=== PATIENT | female | born 1995 | race Caucasian/White ===

== ENCOUNTER 2017-06-16 11:22 | Inpatient (IN) ==
[2017-06-16] MEDS ORDERED: Penicillin G Potassium 5,000,000 UNIT in D5% in Water (Mini-Bag+) 100 ML IVPB ONE (12:11)
[2017-06-16] MEDS ORDERED: Ringers Solution, Lactated 1,000 ML IVC SCH (12:15)
[2017-06-16 12:35] LABS: Amphetamine Screen,Urine Negative ng/mL (Cutoff=1000); Barbiturate Screen,Urine Negative ng/mL (Cutoff=200); Benzodiazepines Screen,Urine Negative ng/mL (Cutoff=200); Cannabinoid Screen,Urine Positive ng/mL (Cutoff = 50); Cocaine Screen,Urine Negative ng/mL (Cutoff= 300); Opiate Screen,Urine Negative ng/mL (Cutoff=300); Phencyclidine Screen,Urine Negative ng/mL (Cutoff=25)
[2017-06-16 12:48] LABS: Basophils % 0.2 %; Eosinophils # 0.1 K/mcL (0.0-0.6); Eosinophils % 1.1 %; Hematocrit 35.9 % (35.3-44.9); Hemoglobin 11.8 g/dL (11.5-15.4); Immature Granulocytes % 0.6 % (0-4); Lymphocytes # 1.7 K/mcL (0.6-4.6); Lymphocytes % 19.1 %; Mean Corpuscular HGB Conc 32.9 g/dL (31.6-35.5); Mean Corpuscular Hemoglobin 26.3 pg (28.0-33.3); Mean Platelet Volume 10.2 fL (9.4-12.4); Monocytes # 0.5 K/mcL (0.0-1.3); Monocytes % 5.7 %; Neutrophils # 6.6 K/mcL (1.6-8.9); Platelet Count 175 K/mcL (140-400); Red Blood Count 4.49 M/mcL (3.82-4.97); Red Cell Distribution Width 14.9 % (11.5-14.5); Segmented Neutrophils % 73.3 %
--- NOTE | 2017-06-16 15:58 | OB/GYN History & Physical ---
Date of Encounter: 06/16/17 Time of Encounter: 15:55 Assessment and Plan (1) 36 weeks gestation of Current visit: Yes Status: Acute (2) Uterine contractions Current visit: Yes Status: Acute After 2 hours of triage monitoring patient made cervical change Admitted to labor and delivery Penicillin for GBS initiated Nubain and epidural as desired Anticipate Dr. Araya aware of admission and plan of care History of Present Illness Chief complaint: Contractions HPI: Ms. Barr is a 22 year old female at 36+ weeks gestation. Patient sent over from the office for contractions and advanced dilation at 5 cm. Patient reports good movement, denies vaginal bleeding, or leaking of fluid. Patient states uncomplicated course. Patient transferred back to Dr. Araya after receiving initial care in [place]. Labs: O+ rubella immune, varicella non-immune, GBS unknown, although serologies negative Past Med Surg Social Fam HX - Past Medical History Medical history: no medical history Psychiatric history: no psych history - Past Surgical History Surgical History: no surgical history, other - Social History Smoking Status: Never smoker Alcohol use: none Drug use: none - Family History Mother Adopted: No Family Member Ethnicity: Non- Living Status: Still Living Hx Family Cardiac Disorders: No Hx Family Respiratory Disorders: No Hx Family Cancer: No Hx Family GI Disorders: No Hx Family Genitourinary Disorders: No Hx Family Endocrine Disorder: No Hx Family Musculoskeletal Disorders: No Hx Family Neuromuscular Disorders: No Hx Family Neurologic Disorders: No Hx Family HEENT Disorders: No Hx Family Autoimmune Disorders: No Hx Family Reproductive Disorders: No Hx Family Psychosocial Disorders: No Hx Family Medical Disorders: No Obstetrical History - Pregnancies : 2 Para: 1 Term: 1 : 0 Ab's: 1 Livin Medications and Allergies Vidal Capsule 1 tab PO DAILY 01/07/16 [History] Ferrous Sulfate 325 mg PO DAILY #30 tablet 03/11/16 [Rx] 3 Allergy/AdvReac Type Severity Reaction Status Date / Time No Known Allergies Allergy Verified 06/16/17 11:55 Exam - Constitutional Constitutional: well developed, well nourished, no acute distress, average body habitus - Neck Neck exam: full ROM - Lungs Respiratory exam: CTAB - Cardiovascular Cardiovascular exam: RRR - Abdomen Abdomen: Present: bowel sounds normal, gravid, non tender - Extremities Extremities exam: normal capillary refill, normal inspection - Cervix Dilation: 6 (Per RN) Effacement: 90 Results Result Diagrams: 06/16/17 12:30 Abnormal lab results MCV 80.0 fL (83.0-100.0) L 06/16/17 12:30 MCH 26.3 pg (28.0-33.3) L 06/16/17 12:30 RDW 14.9 % (11.5-14.5) H 06/16/17 12:30 U Marijuana (THC) Screen Positive ng/mL (Cutoff = 50) H 06/16/17 12:06 All other labs normal. - VTE Reasons for not Prescribing Prophylaxis: Treatment not Indicated - Low risk for VTE
[2017-06-16] MEDS: Penicillin G Potassium 2,500,000 UNIT in D5% in Water 100 ML IVPB SCH ×2 (16:48→20:40)
[2017-06-16] MEDS ORDERED: Oxytocin 20 units/ LR 1000 mL 20 UNIT/1,000 ML BAG IVC ONE (20:36)
--- NOTE | 2017-06-16 20:39 | OB Labor Progress Note ---
Date of Encounter: 06/16/17 Time of Encounter: 20:36 Labor Progress Note - Subjective Subjective: Pt states contractions have spaced out and are not painful - Cervix Cervix: 8/100/-1 - Heart Tones Heart Tones: 145/moderate/+accels/-decels - [place]: q5-19 - Interventions Interventions: AROM for clear fluid. - Plan Plan: Start pitocin per policy Nubain and Epidural as desired. PCN for GBS Anticipate Plan of care discussed with Dr. Araya
[2017-06-16] MEDS ORDERED: Oxytocin 20 units/ LR 1000 mL 20 UNIT/1,000 ML BAG IVC SCH ×3 (20:45→23:00)
[2017-06-16] MEDS ORDERED: Benzocaine/Menthol 56 GM AEROSOL SPRAY TP PRN (22:52)
[2017-06-16] MEDS ORDERED: Lanolin 7 G OINT...G. TP PRN (22:52)
[2017-06-16] MEDS ORDERED: Acetaminophen 325 MG TABLET PO PRN ×2 (22:52)
--- NOTE | 2017-06-16 22:52 | OB/GYN Procedure Note ---
Delivery - Delivery Date: 06/16/17 Provider: Cathy Aguilera Intrapartum events: none Delivery induction: none Delivery augmentation: rupture of membranes, pitocin Delivery monitor: external FHT, external uterine Anesthesia: none Estimated Blood Loss: 150 - (s) Infant A Delivery Date: 06/16/17 Infant Delivery Time: 22:23 Presentation: vertex Position: OA Route of delivery: Gender: Male Viability: Viable Pounds: 7 Ounces: 10 Weight Gram: 3470 kg at 1 minute: 8 at 5 mins: 9 Shoulder Dystocia: not encountered Specimens collected: cord blood Placenta: spontaneous - Repair Episiotomy: none Laceration Description: Perineal - 1st Degree - Complications Delivery complications: none Delivery comments: Spontaneous onset of labor at 36 weeks progressed to complete and began maternal bearing down efforts to of liveborn male. Vertex delivered OA shoulders and body easily followed no nuchal cord or shoulder dystocia encountered. Vigorous placed on maternal abdomen for drying and stimulation Apgars 8/9. Placenta delivered spontaneously complete, Pitocin started per policy, placenta intact upon inspection, fundus firm. First-degree perineal laceration hemostatic and left unrepaired at patient request. EBL 150. All sponge and needle counts correct. Mother and left bonding and skin to skin on labor and delivery. - Disposition Mom disposition: stable in LDR [place] disposition: stable in LDR
[2017-06-16] MEDS: Ibuprofen 600 MG TABLET PO PRN (23:08)
[2017-06-17] MEDS: Ibuprofen 600 MG TABLET PO PRN ×2 (06:56→20:58)
[2017-06-17] MEDS: Prenatal Vit/FA 1 EACH TABLET PO SCH (07:51)
[2017-06-17] MEDS ORDERED: Prenatal Vit/FA 1 EACH TABLET PO SCH (09:00)
--- NOTE | 2017-06-17 09:00 | OB/GYN Progress Note ---
Date of Encounter: 06/17/17 Time of Encounter: 08:58 - Assessment and Plan (1) Mother currently breast-feeding Current Visit: Yes Status: Acute Pt states she has breastpump at home. (2) Vaginal delivery Current Visit: No Status: Acute Pt meeting PPD#1 milestones. Plan for discharge home tomorrow. Subjective - Subjective Patient reports: appetite normal, voiding normally, pain well controlled, ambulating normally [place]: doing well, nursing well Objective - Latest Vital Signs Latest vital signs: Vital Signs Temp Pulse Resp BP Pulse Ox 06/17/17 07:30 98.7 F 80 12 108/68 97 06/17/17 03:25 98.1 F 87 18 90/53 97 06/17/17 02:00 98.2 F 95 16 95/54 97 06/17/17 01:00 98.4 F 85 16 112/60 97 06/17/17 00:00 97.8 F 74 16 121/67 99 Intake and Output 06/16/17 06/17/17 06/17/17 23:59 07:59 15:59 Intake Total 100 / 100 Balance 100 / 100 Intake: IV Fluids 100 / 100 Pfizerpen 2,500,000 UNIT In 100 / 100 Dextrose 5% 100 ML @ 200 mls/hr IVPB Q4HR [facility] Rx#:[id number] Other: Weight 78.8 kg Patient Weight 06/17/17 23:59 Weight 78.8 kg - Exam Lungs: bilateral: normal Chest: Normal S1, Normal S2 Extremities: Present: normal Abdomen: Present: soft Uterus: Present: firm Uterus Position: 2 Fingers Below Umbilicus - Labs Labs: Laboratory Results - last 24 hr 06/16/17 06/16/17 12:06 12:30 WBC 9.0 RBC 4.49 Hgb 11.8 Hct 35.9 MCV 80.0 L MCH 26.3 L MCHC 32.9 RDW 14.9 H Plt Count 175 MPV 10.2 Immature Gran % 0.6 Seg Neutrophils % 73.3 Lymphocytes % 19.1 Monocytes % 5.7 Eosinophils % 1.1 Basophils % 0.2 Neutrophils # 6.6 Lymphocytes # 1.7 Monocytes # 0.5 Eosinophils # 0.1 Basophils # 0.0 Urine Opiates Screen Negative Ur Barbiturates Screen Negative Ur Phencyclidine Scrn Negative Ur Amphetamines Screen Negative U Benzodiazepines Scrn Negative Urine Cocaine Screen Negative U Marijuana (THC) Screen Positive H
[2017-06-17 09:33] LABS: Basophils % 0.3 %; Eosinophils # 0.1 K/mcL (0.0-0.6); Eosinophils % 1.6 %; Hematocrit 34.2 % (35.3-44.9); Hemoglobin 11.3 g/dL (11.5-15.4); Immature Granulocytes % 0.4 % (0-4); Lymphocytes # 1.6 K/mcL (0.6-4.6); Lymphocytes % 20.7 %; Mean Corpuscular Hemoglobin 27.2 pg (28.0-33.3); Mean Corpuscular Volume 82.2 fL (83.0-100.0); Mean Platelet Volume 10.5 fL (9.4-12.4); Monocytes # 0.7 K/mcL (0.0-1.3); Monocytes % 9.7 %; Neutrophils # 5.1 K/mcL (1.6-8.9); Platelet Count 175 K/mcL (140-400); Red Blood Count 4.16 M/mcL (3.82-4.97); Segmented Neutrophils % 67.3 %
[2017-06-18] MEDS: Ibuprofen 600 MG TABLET PO PRN (05:24)
[2017-06-18 07:51] VITALS: BP 95/54
--- NOTE | 2017-06-18 08:17 | Discharge Summary ---
Date of Encounter: 06/18/17 Time of Encounter: 08:12 - Discharge Diagnosis (1) Vaginal delivery Priority: Primary Status: Acute Comments: Pt continues to meet milestones. Pt would like to go home today. Has no concerns. Will discharge with prn Motrin for pain/cramping. - Discharge Medications Prescriptions: Ibuprofen [Motrin] 600 mg PO Q6HR PRN #20 tablet PRN Reason: Cramping Home Medications: Ibuprofen [Motrin] 600 mg PO Q6HR PRN #20 tablet 06/18/17 [Rx] Vit/FA 1 each PO DAILY tablet 06/18/17 [Rx] Vit/FA 1 each PO DAILY tablet 06/18/17 [Rx] Allergies/Adverse Reactions: 3 Allergy/AdvReac Type Severity Reaction Status Date / Time No Known Allergies Allergy Verified 06/16/17 11:55 Data Procedures and tests throughout hospitalization: Laboratory Tests 06/16/17 06/16/17 06/17/17 12:06 12:30 09:12 WBC 9.0 7.6 RBC 4.49 4.16 Hgb 11.8 11.3 L Hct 35.9 34.2 L MCV 80.0 L 82.2 L MCH 26.3 L 27.2 L MCHC 32.9 33.0 RDW 14.9 H 15.0 H Plt Count 175 175 MPV 10.2 10.5 Immature Gran % 0.6 0.4 Seg Neutrophils % 73.3 67.3 Lymphocytes % 19.1 20.7 Monocytes % 5.7 9.7 Eosinophils % 1.1 1.6 Basophils % 0.2 0.3 Neutrophils # 6.6 5.1 Lymphocytes # 1.7 1.6 Monocytes # 0.5 0.7 Eosinophils # 0.1 0.1 Basophils # 0.0 0.0 Urine Opiates Screen Negative Ur Barbiturates Screen Negative Ur Phencyclidine Scrn Negative Ur Amphetamines Screen Negative U Benzodiazepines Scrn Negative Urine Cocaine Screen Negative U Marijuana (THC) Screen Positive H Labs on day of discharge: Labs from last 24 hours 06/17/17 09:12 WBC 7.6 RBC 4.16 Hgb 11.3 L Hct 34.2 L MCV 82.2 L MCH 27.2 L MCHC 33.0 RDW 15.0 H Plt Count 175 MPV 10.5 Immature Gran % 0.4 Seg Neutrophils % 67.3 Lymphocytes % 20.7 Monocytes % 9.7 Eosinophils % 1.6 Basophils % 0.3 Neutrophils # 5.1 Lymphocytes # 1.6 Monocytes # 0.7 Eosinophils # 0.1 Basophils # 0.0 Date of admission: 06/16/17 11:22 Primary care physician: SALVATORE NONE Consults: 06/16/17 22:52 Consult to Evaluation Engineer [CONS] Routine Comment: Vaginal delivery, consult needed Consult to Evaluation Engineer [CONS] Routine Comment: Vaginal delivery, consult needed Discharging clinician: Janki Lira - Patient Status Disposition: Home, Self-Care Condition: Good Functional capacity at discharge: independent ambulation Overall status at discharge: patient is back to baseline - Discharge Instructions Follow Up With: NONE,PCP [Primary Care Provider] - - Diet and Activity Activity: increase activity as tolerated Diet: advance to your usual diet Hospital Course Reason for admission: active labor Delivery: Episiotomy: none Laceration: 1st degree Other procedures: none complications: none Discharge diagnosis: IUP at term delivered baby: male Hospital course: - Delivery Date: 06/16/17 Provider: Cathy Aguilera Intrapartum events: none Delivery induction: none Delivery augmentation: rupture of membranes, pitocin Delivery monitor: external FHT, external uterine Anesthesia: none Estimated Blood Loss: 150 - (s) Infant A Delivery Date: 06/16/17 Delivery Time: 22:23 Presentation: vertex Position: OA Route of delivery: Gender: Male Viability: Viable Pounds: 7 Ounces: 10 Weight Gram: 3470 kg at 1 minute: 8 at 5 mins: 9 Shoulder Dystocia: not encountered Specimens collected: cord blood Placenta: spontaneous - Repair Episiotomy: none Laceration Description: Perineal - 1st Degree - Complications Delivery complications: none Delivery comments: Spontaneous onset of labor at 36 weeks progressed to complete and began maternal bearing down efforts to of liveborn male. Vertex delivered OA shoulders and body easily followed no nuchal cord or shoulder dystocia encountered. Vigorous placed on maternal abdomen for drying and stimulation Apgars 8/9. Placenta delivered spontaneously complete, Pitocin started per policy, placenta intact upon inspection, fundus firm. First-degree perineal laceration hemostatic and left unrepaired at patient request. EBL 150. All sponge and needle counts correct. Mother and left bonding and skin to skin on labor and delivery. Time Attestation: Total time spent providing and/or coordinating discharge services: Time Spent: Less than 30 minutes Exam - Constitutional Vitals: Temp Pulse Resp BP Pulse Ox 98.4 F 65 16 95/54 98 06/18/17 07:30 06/18/17 07:30 06/18/17 07:30 06/18/17 07:30 06/17/17 23:24 General appearance IM: A&O X 3 - Respiratory Respiratory exam: Present: CTAB - Cardiovascular Cardiovascular exam IM: Present: +S1, +S2. Absent: +S3, +S4 - GI/Abdominal GI/Abdominal exam IM: no peritoneal signs - Uterus Position: 1 Finger Below Umbilicus - Neurological Exam Neurological exam: oriented X3 - Attending Attestation I examined this patient and my medical decision-making was reviewed with the Resident Physician. I agree with the documented findings, disposition and treatment plan as described. Ezio Lira CNM
[2017-06-18] MEDS: Prenatal Vit/FA 1 EACH TABLET PO SCH (10:12)
== END 2017-06-18 14:23 | disposition home or self-care (01) | DRG 560 ==
LOC: 1NENULAB → OBSVTOIN 11:22 → 1NENUOBS 06-17 00:04
PROVIDERS: ADMIT Obstetrics & Gynecology; ATTEND Obstetrics & Gynecology

== ENCOUNTER → 2019-05-11 16:43 | Observation (INO) ==
[2019-05-11 14:49] LABS: Bilirubin,Urine Negative (Negative); Blood,Urine Small (Negative); Clarity,Urine Cloudy (Clear); Color,Urine Yellow (Yellow); Glucose,Urine (UA) Normal (Normal); Ketones,Urine Negative (Negative); Leukocyte Esterase,Urine Small (Negative); Nitrite,Urine Negative (Negative); Protein,Urine Negative (Neg-Trace); Specific Gravity,Urine 1.016 (1.010-1.025); Urobilinogen,Urine Normal (Normal)
[2019-05-11 14:51] LABS: Bacteria,Urine Few per hpf (None-Few); Hyaline Casts,Urine None Seen per lpf (None-Few); RBC,Urine 0-3 per hpf (0-3); Squamous Epithelial Cell,Urine Many per lpf (None-Few)
[2019-05-11 14:57] LABS: Amphetamine Screen,Urine Negative ng/mL (Cutoff=1000); Barbiturate Screen,Urine Negative ng/mL (Cutoff=200); Benzodiazepines Screen,Urine Negative ng/mL (Cutoff=200); Cannabinoid Screen,Urine Positive ng/mL (Cutoff = 50); Cocaine Screen,Urine Negative ng/mL (Cutoff= 300); Opiate Screen,Urine Negative ng/mL (Cutoff=300); Phencyclidine Screen,Urine Negative ng/mL (Cutoff=25)
[~2019-05-11 16:43] MED LIST: Betamethasone Acet/SodPhos 30 MG/5 ML VIAL IM SCH; Ringers Solution, Lactated 1,000 ML IVC SCH
== END | disposition home or self-care (01) ==
LOC: 1NENULAB
PROVIDERS: ADMIT Registered Nurse; ATTEND Registered Nurse

== ENCOUNTER 2019-06-17 09:41 | Inpatient (IN) ==
[2019-06-17] MEDS ORDERED: Ondansetron 4 MG/2 ML VIAL IVP PRN (10:18)
[2019-06-17] MEDS ORDERED: *HR* Nalbuphine 10 MG/ML AMPUL IVP PRN (10:18)
[2019-06-17] MEDS ORDERED: Naloxone 0.4 MG/ML INJ IVP PRN (10:18)
[2019-06-17] MEDS ORDERED: Famotidine 20 MG/2 ML VIAL IVP PRN (10:18)
[2019-06-17] MEDS ORDERED: Lidocaine 1% 20 ML MDV ID PRN (10:18)
[2019-06-17] MEDS ORDERED: Metoclopramide 10 MG/2 ML VIAL IVP PRN (10:18)
[2019-06-17] MEDS ORDERED: Ringers Solution, Lactated 1,000 ML IVC SCH (10:30)
--- NOTE | 2019-06-17 10:33 | OB/GYN History & Physical ---
Date of Encounter: 06/17/19 Time of Encounter: 10:31 Assessment and Plan (1) 39 weeks gestation of Current visit: Yes Status: Acute (2) Encounter for induction of labor Current visit: Yes Status: Acute Start pitocin and increase to adequate contraction pattern with external monitoring in anticipation of a vaginal delivery History of Present Illness Chief complaint: Induction of labor at 39 weeks HPI: Ms. Barr is a 24 year old female G1 at 39 2/7 weeks presents to labor and delivery for scheduled induction of labor. She reports good movement. She denies any contractions, vaginal bleeding, or leaking of fluid. Her has been uncomplicated. She denies any recent illness, fever, chills, nausea, vomiting, diarrhea, vaginal discharge. Labs: GBS negative, O-, rubella immune, varicella immune, all other serologies negative Past Med Surg Social Fam HX - Past Medical History Source: patient Medical history: no medical history Psychiatric history: no psych history - Past Surgical History Surgical History: no surgical history Additional surgical history: wart removed from head as a baby. wisdom teeth removed - Social History Smoking Status: Former smoker Smokeless Tobacco Status: No Alcohol use: none Drug use: marijuana - Family History Mother Adopted: No Family Member Ethnicity: Non- Living Status: Still Living Hx Family Cardiac Disorders: Yes (hypertension) Hx Family Respiratory Disorders: No Hx Family Cancer: No Hx Family GI Disorders: No Hx Family Genitourinary Disorders: No Hx Family Endocrine Disorder: No Hx Family Musculoskeletal Disorders: No Hx Family Neuromuscular Disorders: No Hx Family Neurologic Disorders: No Hx Family HEENT Disorders: No Hx Family Autoimmune Disorders: No Hx Family Reproductive Disorders: No Hx Family Psychosocial Disorders: No Hx Family Medical Disorders: No Obstetrical History - Pregnancies : 3 Para: 2 Term: 1 : 1 Ab's: 0 Livin Medications and Allergies Vit/FA 1 each PO DAILY tablet 06/18/17 [Rx] Allergy/AdvReac Type Severity Reaction Status Date / Time No Known Allergies Allergy Verified 06/16/17 11:55 Review of System OB - Constitutional Constitutional ROS IM: no chills, no fatigue, no fever(s) - Cardiovascular Cardiovascular: edema, no chest pain - Respiratory Respiratory: no dyspnea - Gastrointestinal Gastrointestinal: no diarrhea, no nausea - Genitourinary Genitourinary: amenorrhea, no abnormal vaginal bleeding, no pelvic pain, no vaginal discharge Exam - Vital Signs Vital signs: - Constitutional Constitutional: well developed, well nourished, no acute distress, average body habitus - HEENT HEENT: EOMI - Lungs Respiratory exam: CTAB - Cardiovascular Cardiovascular exam: RRR - Abdomen Abdomen: Present: bowel sounds normal, gravid, non tender - Extremities Extremities exam: pedal edema - Constitutional Constitutional: well developed, well nourished, no acute distress, average body habitus - HEENT HEENT: EOMI, Normocephaly, Mucus Membranes Moist - Lungs Respiratory exam: CTAB - Cardiovascular Cardiovascular exam: RRR - Abdomen Abdomen: Present: bowel sounds normal, gravid, non tender - Vulva Vulva: bilateral: normal - Cervix Dilation: 4 (on exam 06/08/19 in office) Effacement: 80 Station: -2 - Comments Comments: [place]'s to 7.5 lbs in cephalic presentation Results Result Diagrams: 06/17/19 10:20 All other labs normal. - VTE Reasons for not Prescribing Prophylaxis: Treatment not Indicated - Low risk for VTE - Attending Attestation I examined this patient and my medical decision-making was reviewed with the Resident Physician. I agree with the documented findings, disposition and treatment plan as described. Sofy Araya DO
[2019-06-17] MEDS ORDERED: Oxytocin 20 units/ LR 1000 mL 20 UNIT/1,000 ML BAG IVC SCH ×2 (11:00→21:01)
[2019-06-17 11:02] LABS: Basophils % 0.4 %; Eosinophils # 0.2 K/mcL (0.0-0.6); Eosinophils % 1.9 %; Hemoglobin 10.9 g/dL (11.5-15.4); Immature Granulocytes % 0.7 % (0-4); Lymphocytes # 1.7 K/mcL (0.6-4.6); Lymphocytes % 20.1 %; Mean Corpuscular HGB Conc 32.1 g/dL (31.6-35.5); Mean Corpuscular Hemoglobin 26.2 pg (28.0-33.3); Mean Corpuscular Volume 81.7 fL (83.0-100.0); Mean Platelet Volume 10.4 fL (9.4-12.4); Monocytes # 0.5 K/mcL (0.0-1.3); Monocytes % 6.2 %; Platelet Count 211 K/mcL (140-400); Red Blood Count 4.16 M/mcL (3.82-4.97); Red Cell Distribution Width 14.6 % (11.5-14.5); Segmented Neutrophils % 70.7 %; White Blood Count 8.5 K/mcL (4.3-11.1)
[2019-06-17 11:09] LABS: Amphetamine Screen,Urine Negative ng/mL (Cutoff=1000); Barbiturate Screen,Urine Negative ng/mL (Cutoff=200); Benzodiazepines Screen,Urine Negative ng/mL (Cutoff=200); Cannabinoid Screen,Urine Positive ng/mL (Cutoff = 50); Cocaine Screen,Urine Negative ng/mL (Cutoff= 300); Opiate Screen,Urine Negative ng/mL (Cutoff=300); Phencyclidine Screen,Urine Negative ng/mL (Cutoff=25)
--- NOTE | 2019-06-17 15:33 | OB Labor Progress Note ---
Date of Encounter: 06/17/19 Time of Encounter: 15:31 Labor Progress Note - Subjective Subjective: Patient complaining of increased pain with contractions. - Cervix Cervix: 7/80/-2 cephalic - Heart Tones Heart Tones: 140's with occasional variables - [place]: q 1-3 minutes pit halved to 4 milliUnits/min - Interventions Interventions: AROM with small amount of clear fluid - Plan Plan: Continue pitocin induction with EFM in anticipation of vaginal delivery
--- NOTE | 2019-06-17 17:22 | OB/GYN Procedure Note ---
Delivery - Delivery Date: 06/17/19 Provider: Sofy Araya (assisted by Manual Lozoya) Intrapartum events: none Delivery induction: AROM, oxytocin Delivery monitor: external FHT, external uterine Anesthesia: none Quantitated Blood Loss: 200 - Infant (s) A Infant Delivery Date: 06/17/19 Delivery Time: 17:05 Presentation: vertex Position: YANCY Gender: Male Viability: Viable Pounds: 8 Ounces: 3 Weight Gram: 3.705 kg at 1 minute: 8 at 5 mins: 9 Shoulder Dystocia: not encountered Specimens collected: cord blood Placenta: spontaneous Cord: 3 umbilical vessels - Repair Laceration Description: Labial (right labial, hemostatic without repair) - Complications Delivery complications: none Delivery comments: Called to room with patient complete and +1 station. Under maternal effort she delivered a viable male weighing 8 lbs. 3 oz. and Apgars pending at time of dictation delivered over an intact perineum. Following delivery of the head there was no nuchal cord or shoulder dystocia encountered. delivered with maternal effort and was placed on mom's abdomen. Cord was allowed to cease pulsations and then was double clamped and cut with assistance from the father. Cord blood was collected. Placenta delivered spontaneously, complete, and intact with a three-vessel cord. Right labial laceration was noted that was hemostatic without repair. Mother and infant are recovering in the LDR in stable condition - Disposition Mom disposition: stable in LDR disposition: stable in LDR
[2019-06-17] MEDS ORDERED: Ibuprofen 600 MG TABLET PO ONE (17:59)
[2019-06-17] MEDS ORDERED: Acetaminophen 325 MG TABLET PO PRN (21:01)
[2019-06-17] MEDS ORDERED: *HR* HYDROcodone/Acet 5/325 mg TABLET PO PRN (21:01)
[2019-06-17] MEDS ORDERED: Oxytocin 20 units/ LR 1000 mL 20 UNIT/1,000 ML BAG IVC ONE (21:01)
[2019-06-18] MEDS: Ibuprofen 600 MG TABLET PO PRN ×2 (03:30→11:24)
[2019-06-18 06:43] LABS: Basophils % 0.4 %; Eosinophils # 0.2 K/mcL (0.0-0.6); Eosinophils % 1.7 %; Hematocrit 29.8 % (35.3-44.9); Hemoglobin 9.6 g/dL (11.5-15.4); Immature Granulocytes % 0.7 % (0-4); Mean Corpuscular HGB Conc 32.2 g/dL (31.6-35.5); Mean Corpuscular Hemoglobin 26.4 pg (28.0-33.3); Mean Corpuscular Volume 82.1 fL (83.0-100.0); Mean Platelet Volume 10.5 fL (9.4-12.4); Monocytes # 0.7 K/mcL (0.0-1.3); Monocytes % 7.6 %; Neutrophils # 6.1 K/mcL (1.6-8.9); Platelet Count 172 K/mcL (140-400); Red Blood Count 3.63 M/mcL (3.82-4.97); Red Cell Distribution Width 14.7 % (11.5-14.5); Segmented Neutrophils % 67.6 %
[2019-06-18 08:17] VITALS: BP 126/77
--- NOTE | 2019-06-18 08:47 | Discharge Summary ---
Date of Encounter: 06/18/19 Time of Encounter: 08:46 - Discharge Diagnosis (1) Vaginal delivery Priority: Primary Status: Acute Comments: S/P Vaginal Delivery Day 1. VSS Pain is well controlled Lochia is light and without clots Tolerating regular diet, passing flatus Voiding without difficulty Bottle feeding Discharge home today POC per consult with Dr White - Discharge Medications Prescriptions: New Docusate [Colace] 100 mg PO BID #30 capsule Ferrous Sulfate 325 mg PO DAILY #180 tablet Ibuprofen [Motrin] 600 mg PO Q6HR PRN #30 tablet PRN Reason: Cramping Acetaminophen [Tylenol] 650 mg PO Q6HR PRN tablet PRN Reason: Mild Pain Continued Vit/FA 1 each PO DAILY tablet Home Medications: Vit/FA 1 each PO DAILY tablet 06/18/17 [Rx] Acetaminophen [Tylenol] 650 mg PO Q6HR PRN tablet 06/18/19 [Rx] Docusate [Colace] 100 mg PO BID #30 capsule 06/18/19 [Rx] Ferrous Sulfate 325 mg PO DAILY #180 tablet 06/18/19 [Rx] Ibuprofen [Motrin] 600 mg PO Q6HR PRN #30 tablet 06/18/19 [Rx] Allergies/Adverse Reactions: Allergy/AdvReac Type Severity Reaction Status Date / Time No Known Allergies Allergy Verified 06/16/17 11:55 Data Procedures and tests throughout hospitalization: Laboratory Tests 06/17/19 06/17/19 06/18/19 10:20 10:20 06:34 WBC 8.5 9.0 RBC 4.16 3.63 L Hgb 10.9 L 9.6 L Hct 34.0 L 29.8 L MCV 81.7 L 82.1 L MCH 26.2 L 26.4 L MCHC 32.1 32.2 RDW 14.6 H 14.7 H Plt Count 211 172 MPV 10.4 10.5 Immature Gran % 0.7 0.7 Seg Neutrophils % 70.7 67.6 Lymphocytes % 20.1 22.0 Monocytes % 6.2 7.6 Eosinophils % 1.9 1.7 Basophils % 0.4 0.4 Neutrophils # 6.0 6.1 Lymphocytes # 1.7 2.0 Monocytes # 0.5 0.7 Eosinophils # 0.2 0.2 Basophils # 0.0 0.0 Urine Opiates Screen Negative Ur Buprenorphine Scrn Negative Ur Barbiturates Screen Negative Ur Phencyclidine Scrn Negative Ur Amphetamines Screen Negative U Benzodiazepines Scrn Negative Urine Cocaine Screen Negative U Marijuana (THC) Screen Positive H Ur Drug Screen Interp See Below Labs on day of discharge: Labs from last 24 hours 06/18/19 06/17/19 06/17/19 06:34 10:20 10:20 WBC 9.0 8.5 RBC 3.63 L 4.16 Hgb 9.6 L 10.9 L Hct 29.8 L 34.0 L MCV 82.1 L 81.7 L MCH 26.4 L 26.2 L MCHC 32.2 32.1 RDW 14.7 H 14.6 H Plt Count 172 211 MPV 10.5 10.4 Immature Gran % 0.7 0.7 Seg Neutrophils % 67.6 70.7 Lymphocytes % 22.0 20.1 Monocytes % 7.6 6.2 Eosinophils % 1.7 1.9 Basophils % 0.4 0.4 Neutrophils # 6.1 6.0 Lymphocytes # 2.0 1.7 Monocytes # 0.7 0.5 Eosinophils # 0.2 0.2 Basophils # 0.0 0.0 Urine Opiates Screen Negative Ur Buprenorphine Scrn Negative Ur Barbiturates Screen Negative Ur Phencyclidine Scrn Negative Ur Amphetamines Screen Negative U Benzodiazepines Scrn Negative Urine Cocaine Screen Negative U Marijuana (THC) Screen Positive H Ur Drug Screen Interp See Below Date of admission: 06/17/19 09:41 Consults: 06/17/19 21:01 Consult to Senior Insight Manager [CONS] Routine Reason for SW Consult: THC+ Discharging clinician: Janki Lira Anticipated date of discharge: 06/18/19 - Patient Status Disposition: Home, Self-Care Condition: Good Functional capacity at discharge: independent ambulation Overall status at discharge: patient is progressing back to baseline - Discharge Instructions Follow Up With: Sofy Araya, [Partnered Physician] - - Diet and Activity Activity: increase activity as tolerated Diet: regular diet Hospital Course Reason for admission: IUP at term Delivery: Episiotomy: none Laceration: other Other procedures: none complications: none Discharge diagnosis: IUP at term delivered baby: male Time Attestation: Total time spent providing and/or coordinating discharge services: Time Spent: Less than 30 minutes Exam - Constitutional Vitals: Temp Pulse Resp BP Pulse Ox 97.6 F 71 16 126/77 99 06/18/19 08:14 06/18/19 08:14 06/18/19 08:14 06/18/19 08:14 06/18/19 08:14 General appearance IM: cooperative, A&O X 3, pleasant, no acute distress - Respiratory Respiratory exam: Present: CTAB. Absent: respiratory distress - Cardiovascular Cardiovascular exam IM: Present: RRR, +S1, +S2. Absent: irregular rhythm - GI/Abdominal GI/Abdominal exam IM: normal bowel sounds, soft - Rectal Rectal exam: deferred - Uterine Tone: Firm Uterus Position: 2 Fingers Below Umbilicus, Midline - Extremities Exam Extremities exam IM: Present: normal capillary refill, normal inspection, radial pulses palpable and symmetrical. Absent: calf tenderness - Neurological Exam Neurological exam: alert, oriented X3
[2019-06-18] MEDS ORDERED: Prenatal Vit/FA 1 EACH TABLET PO SCH (09:00)
== END 2019-06-18 19:59 | disposition home or self-care (01) | DRG 807 ==
LOC: 1NENULAB 09:41 → 1NENUOBS 20:15
PROVIDERS: ADMIT Obstetrics & Gynecology; ATTEND Obstetrics & Gynecology